=== PATIENT | male | born 1960 | race American Indian/Alaskan Native ===

== ENCOUNTER 2016-09-15 03:25 | Emergency (ER) | payer OTHER ==
[2016-09-15] MEDS ORDERED: Sodium Chloride 0.9% 1,000 ML IV ONE (03:40)
[2016-09-15] MEDS ORDERED: Iohexol 240 (50 ml) PO ONE (03:41)
[2016-09-15] MEDS ORDERED: Sodium Chloride 0.9% 1,000 ML ONE (03:48)
[2016-09-15] MEDS ORDERED: Iohexol 240 (50 ml) ONE (03:48)
--- NOTE | 2016-09-15 03:48 | C.PDOC ---
History Of Present Illness Right sided abd pain which stgarted about 2 hours.. DEnies vomiting or nausea. Chief Complaint (Nursing): Abdominal Pain History Per: Patient History/Exam Limitations: no limitations Onset/Duration Of Symptoms: Hrs Current Symptoms Are (Timing): Still Present Severity: Moderate Pain Scale Rating Of: 7 Location Of Pain/Discomfort: RLQ, Other (Right side of the abdomen) Radiation Of Pain To:: None Quality Of Discomfort: Sharp, "Pain" Associated Symptoms: denies: Fever, Chills, Nausea, Vomiting, Diarrhea, Loss Of Appetite, Back Pain, Chest Pain Alleviating Factors: None Last Bowel Movement: Today Recent travel outside of the [place]: No Past Medical History Vital Signs: Last Vital Signs Temp 98.4 F 09/15/16 06:48 Pulse 85 09/15/16 06:48 Resp 16 09/15/16 06:48 BP 143/96 H 09/15/16 06:48 Pulse Ox 100 09/15/16 07:13 - Medical History PMH: HTN Surgical History: No Surg Hx Family History: States: Unknown Family Hx - Social History Hx Tobacco Use: No Hx Alcohol Use: Yes Hx Substance Use: No - Immunization History Hx Tetanus Toxoid Vaccination: No Hx Influenza Vaccination: No Hx Pneumococcal Vaccination: No Review Of Systems Constitutional: Negative for: Fever, Chills, Sweats Cardiovascular: Negative for: Chest Pain, Palpitations, Orthopnea Respiratory: Negative for: Cough, Shortness of Breath Gastrointestinal: Positive for: Abdominal Pain. Negative for: Nausea, Vomiting , Diarrhea, Melena, Hematochezia Genitourinary: Negative for: Dysuria, Frequency, Incontinence, Hematuria Musculoskeletal: Negative for: Neck Pain, Shoulder Pain, Arm Pain Skin: Negative for: Rash Neurological: Negative for: Weakness, Numbness, Incoordination, Change in Speech Psych: Negative for: Anxiety, Depression Physical Exam - Physical Exam Appears: Well, Other (moderate distress due to pain) Skin: Normal Color Head: Atraumatic Oral Mucosa: Moist Tongue: Normal Appearing Throat: Normal Neck: Normal Chest: Symmetrical, No Deformity, No Tenderness, No Ecchymosis, No Subcutaneous Emphysema Cardiovascular: Rhythm Regular, No Edema, No Friction Rub, No Murmur, No JVD Respiratory: Normal Breath Sounds Gastrointestinal/Abdominal: Tenderness (mostly Right lower quadrant), No Organomegaly, Distention, No Guarding, No Rebound, No Ascites Rectal: Deferred Back: Normal Inspection, No CVA Tenderness, No Vertebral Tenderness Extremity: Normal ROM ED Course And Treatment - Laboratory Results Result Diagrams: 09/15/16 04:11 09/15/16 04:11 O2 Sat by Pulse Oximetry: 100 (RA) Pulse Ox Interpretation: Normal - CT Scan/US CT Abd/Pel with contrast Other Rad Studies (CT/US): Interpreted By Me, Read By Radiologist CT/US Interpretation: EXAM: CT Abdomen and Pelvis With Intravenous Contrast. CLINICAL HISTORY: 56 years old, male; Pain; Abdominal pain; Additional info: Rlq abd pain. TECHNIQUE: Axial computed tomography images of the abdomen and pelvis with intravenous contrast. This CT. exam was performed using one or more of the following dose reduction techniques: automated. exposure control, adjustment of the mA and/or kV according to patient size, and/or use of iterative. reconstruction technique. Coronal and sagittal reformatted images were created and reviewed. EXAM DATE/TIME: 09/15/2016 3:41 AM. COMPARISON: No relevant prior studies available. FINDINGS: The liver is normal. The spleen is normal. The pancreas is normal. No gallstones. There is mild- moderate right perinephric stranding. There is a 4 mm calculi in the distal right. ureter. The bowel appears normal. A normal appendix is identified axial images 57 through 61. Enlarged prostate. Prostatic calcifications. There may be some degree of outlet obstruction upon the. urinary bladder. There is an umbilical fat hernia. IMPRESSION: Obstructing calculi distal right ureter. Enlarged prostate. Recommend correlation with PSA level. Disposition Counseled Patient/Family Regarding: Diagnosis - Disposition Referrals: Araceli Tinajero MD [Primary Care Provider] - Disposition: HOME/ ROUTINE Disposition Time: 07:12 Condition: STABLE Prescriptions: oxyCODONE/Acetaminophen [Percocet 5/325 mg Tab] 1 tab PO QID PRN #20 tab PRN Reason: Pain Tamsulosin HCl [Flomax] 0.4 mg PO DAILY #7 cap.er.24h Instructions: Renal Colic (GEN) - POA Present On Arrival: None - Clinical Impression Clinical Impression: Abdominal pain, Renal colic on right side
[2016-09-15 04:18] LABS: BASO # 0.1 K/uL (0.0-0.2); BASO % 2.3 % (0.0-2.0); CHLORIDE 104 mmol/L (98-107); EOS # 0.2 K/uL (0.0-0.7); EOS % 4.5 % (0.0-4.0); HEMATOCRIT 42.5 % (35.0-51.0); LYMPH # 1.4 K/uL (1.0-4.3); MEAN CELL VOLUME 74.7 fL (80.0-94.0); MEAN CORPUSCULAR HGB CONC 33.5 g/dL (33.0-37.0); MEAN PLATELET VOLUME 9.6 fL (7.2-11.7); MONO # 0.5 K/uL (0.0-0.8); MONO % 8.6 % (0.0-10.0); NRBC % 0.1 % (0.0-2.0); POTASSIUM 3.4 mmol/L (3.6-5.2); RED CELL DISTRIBUTION WIDTH 13.5 % (11.5-14.5); SODIUM 139 mmol/L (132-148); WHITE BLOOD COUNT 5.5 K/uL (4.8-10.8)
[2016-09-15 04:20] LABS: AST/SGOT 26 U/L (17-59); BILIRUBIN,TOTAL 0.6 mg/dL (0.2-1.3); CARBON DIOXIDE 22 mmol/L (22-30); GFR AFRICAN-AMERICAN > 60
[2016-09-15 04:21] LABS: ALB/GLOB RATIO 1.4 (1.0-2.1); ALKALINE PHOSPHATASE 115 U/L (38-126); ALT/SGPT 32 U/L (21-72); BLOOD UREA NITROGEN 17 mg/dL (9-20); CALCIUM 8.2 mg/dl (8.6-10.4); GLUCOSE,RANDOM 102 mg/dL (75-110); TOTAL PROTEIN 6.7 g/dL (6.3-8.3)
[2016-09-15 04:22] LABS: RBC URINE 545 /hpf (0-3); URINE BILIRUBIN NEGATIVE (NEGATIVE); URINE BLOOD 3+ (NEGATIVE); URINE COLOR Yellow (YELLOW); URINE GLUCOSE (UA) NORMAL (Normal); URINE KETONE NEGATIVE (NEGATIVE); URINE LEUKOCYTE ESTERASE NEG Leu/uL (Negative); URINE PROTEIN NEGATIVE (NEGATIVE); WBC URINE 1 /hpf (0-5)
[2016-09-15] MEDS ORDERED: Iohexol 350mg/ml 100 ML ONE (05:01)
[2016-09-15 07:24] VITALS: BP 120/88; PULSE 77; RESP 20; TEMP 98.2; O2SAT 97
--- NOTE | 2016-09-15 08:56 | CT ---
PROCEDURE: CT Abdomen and Pelvis with oral and IV contrast. HISTORY: RLQ abd pain COMPARISON: None available. TECHNIQUE: Contiguous axial images of the abdomen and pelvis. Oral and IV contrast was administered. Coronal and Sagittal reformats generated and reviewed. Contrast dose: 100 mL Omnipaque 350 Radiation dose: Total exam DLP = 1046.43 mGy-cm. This CT exam was performed using one or more of the following dose reduction techniques: Automated exposure control, adjustment of the mA and/or kV according to patient size, and/or use of iterative reconstruction technique. FINDINGS: LOWER THORAX: Mild basilar atelectasis. No visible pleural effusion or pneumothorax. Small hiatal hernia. LIVER: 3 mm posterior right hepatic lobe hypodensity, too small to characterize. GALLBLADDER AND BILE DUCTS: Unremarkable. PANCREAS: Unremarkable. SPLEEN: 1.4 x 2.3 cm probable splenule. Otherwise unremarkable appearance ADRENALS: Unremarkable. KIDNEYS AND URETERS: The kidneys enhance symmetrically.4 mm distal right ureteral calculus with mild proximal hydroureteronephrosis. Associated mild perinephric and periureteral stranding. No left-sided hydronephrosis or obstructing calculus. BLADDER: The urinary bladder appears unremarkable. REPRODUCTIVE: The prostate gland measures approximately 3.9 x 5.3 cm. Heterogeneous appearance. Prostate calcifications. APPENDIX: The appendix appears within normal limits of caliber. No secondary signs of acute appendicitis. BOWEL: The stomach is nondistended. The bowel loops appear within normal limits of caliber without evidence of intestinal obstruction. PERITONEUM: No significant free fluid. No definite free air. LYMPH NODES: No bulky lymphadenopathy identified. VASCULATURE: No aortic aneurysm. BONES: Mild degenerative changes. OTHER FINDINGS: Small fat containing umbilical hernia. IMPRESSION: 4 mm distal right ureteral calculus with resultant mild proximal hydroureteronephrosis. Associated mild perinephric and periureteral stranding. Enlarged heterogeneous prostate gland. Recommend correlation with PSA. Additional findings as above. Preliminary impression was provided by virtual radiologic.
== END 2016-09-15 07:37 | disposition home or self-care (01) ==
LOC: SUPCPDRO 03:25 → C.ER 03:25
DX: N20.0 Calculus of kidney (principal); R10.31 Right lower quadrant pain
CPT/HCPCS: 74177; 80053; 81001; 83690; 85025; 96361; 96374; 99285; J2270; J7040; Q9966; Q9967